=== PATIENT | female | born 1995 | race Hispanic/Latino ===

== ENCOUNTER 2019-03-29 10:08 | Inpatient (IN) | payer MEDICAID ==
[2019-03-29] MEDS ORDERED: BUTORPHANOL 2 MG/1 ML INJ IV PRN (14:36)
[2019-03-29] MEDS ORDERED: fentaNYL 100 MCG/2 ML INJ IV PRN (14:36)
[2019-03-29] MEDS ORDERED: MINERAL OIL 30 ML ORAL LIQD PO PRN (14:36)
[2019-03-29] MEDS ORDERED: TERBUTALINE 1 MG/1 ML INJ SUB-Q PRN (14:36)
[2019-03-29] MEDS ORDERED: TERBUTALINE 1 MG/1 ML INJ IVP PRN (14:36)
[2019-03-29] MEDS ORDERED: DINOPROSTONE 10 MG VAG SUPP VG ONE (14:36)
[2019-03-29] MEDS ORDERED: LIDOCAINE (2%) 20 MG/1 ML VIAL 20 ML MDV INFILTRATI ONE (14:36)
[2019-03-29] MEDS ORDERED: ePHEDrine SULFATE 50 MG/1 ML INJ IV PRN (14:36)
[2019-03-29] MEDS ORDERED: AMPICILLIN/NS 2 GM/100 ML 2 GM/100 ML BAG IV ONE (14:36)
[2019-03-29] MEDS ORDERED: OXYTOCIN DRIP 30 UNITS/500 ML BAG IV SCH (15:00)
[2019-03-29] MEDS ORDERED: OXYTOCIN 20 UNIT/1000ML DRIP 20 UNITS/1,000 ML BAG IV SCH (15:00)
[2019-03-29 16:04] LABS: Hematocrit 33.5 % (30.3-42.9); Hemoglobin 10.7 gm/dl (10.1-14.3); Mean Corpuscular HGB Conc 32 % (30-34); Mean Corpuscular Volume 75 fl (79-97); Platelet Count 188 K/mm3 (140-440); Red Blood Count 4.46 M/mm3 (3.65-5.03); Red Cell Distribution Width 15.3 % (13.2-15.2)
[2019-03-29 16:27] LABS: Alanine Aminotransferase 14 units/L (7-56)
[2019-03-29 17:09] LABS: Hemoglobin 10.1 gm/dl (10.1-14.3); Mean Corpuscular HGB Conc 33 % (30-34); Mean Corpuscular Volume 75 fl (79-97); Platelet Count 190 K/mm3 (140-440); Red Blood Count 4.15 M/mm3 (3.65-5.03); Red Cell Distribution Width 15.4 % (13.2-15.2)
[2019-03-29] MEDS ORDERED: MAGNESIUM SULFATE 4 GM/100 ML BAG IV ONE (17:19)
--- NOTE | 2019-03-29 17:36 | History and Physical Report ---
History of Present Illness Date of examination: 03/29/19 Date of admission: 03/29/19 Chief complaint: I'm here for induction History of present illness: Pt is a 23 year old who presents for induction of labor at 38 weeks secondary to newly elevated blood pressures in the office today. Up this point her course has been uncomplicated. She was being followed secondary to obesity. Past History Past Medical History: no pertinent history Past Surgical History: no surgical history Family/Genetic History: none Social history: single - Obstetrical History Expected Date of Delivery: 04/11/19 Actual Gestation: 38 Week(s) 1 Day(s) : 1 Para: 0 Number of Living Children: 0 Medications and Allergies Allergies Allergy/AdvReac Type Severity Reaction Status Date / Time No Known Allergies Allergy Verified 03/29/19 14:46 Home Medications Medication Instructions Recorded Confirmed Last Taken Type Multivitamin Tablet 1 tab PO DAILY 03/29/19 03/29/19 03/28/19 10:00 History Active Meds: Active Medications Butorphanol Tartrate (Stadol) 2 mg IV Q2H PRN PRN Reason: Pain , Severe (7-10) Ephedrine Sulfate (Ephedrine Sulfate) 10 mg IV Q2M PRN PRN Reason: Hypotension Fentanyl (Sublimaze) 100 mcg IV Q2H PRN PRN Reason: Labor Pain Oxytocin/Sodium Chloride (Pitocin/Ns 20 Unit/1000ml Drip) 20 units in 1,000 mls @ 125 mls/hr IV DIRECT DENISE Oxytocin/Sodium Chloride (Pitocin/Ns 30 Unit/500ml) 30 units in 500 mls @ 1 mls/hr IV TITR DENISE; Protocol Oxytocin/Sodium Chloride (Pitocin/Ns 30 Unit/500ml) 30 units in 500 mls @ 1 mls/hr IV TITR DENISE; Protocol Lactated Ringer's (Lactated Ringers) 1,000 mls @ 125 mls/hr IV DIRECT DENISE Magnesium Sulfate (Magnesium Sulfate 4gm/100ml) 4 gm in 100 mls @ 300 mls/hr IV ONCE ONE Stop: 03/29/19 17:38 Magnesium Sulfate (Magnesium Sulfate 40gm/1000ml) 40 gm in 1,000 mls @ 50 mls/hr IV DIRECT DENISE Labetalol HCl (Labetalol) 100 mg PO BID DENISE Mineral Oil (Mineral Oil) 30 ml PO QHS PRN PRN Reason: Constipation Terbutaline Sulfate (Brethine) 0.25 mg SUB-Q ONCE PRN PRN Reason: Hyperstimulation/Hypertonicity Terbutaline Sulfate (Brethine) 0.25 mg IVP ONCE PRN PRN Reason: Hyperstimulation/Hypertonicity Review of Systems All systems: negative Genitourinary: pelvic pain - Vital Signs Vital signs: Vital Signs Pulse BP Pulse Ox 88 129/85 98 03/29/19 11:49 03/29/19 11:49 03/29/19 11:49 Temp Pulse Resp BP Pulse Ox 83 144/80 95 03/29/19 17:28 03/29/19 17:17 03/29/19 17:28 - Physical Exam Breasts: Positive: normal Cardiovascular: Regular rate, Normal S1, Normal S2 Lungs: Positive: Clear to auscultation Abdomen: Positive: normal appearance, soft, normal bowel sounds. Negative: distention, tenderness Vulva: both: normal Vagina: Positive: normal moisture. Negative: discharge Cervix: Negative: lesion, discharge Uterus: Positive: normal size, normal contour Adnexa: both: normal Anus/Rectum: Positive: normal perianal skin, heme negative. Negative: rectal mass, hemorrhoids Extremities: Deep Tendon Reflex Grade: Normal +2 - Obstetrical FHR: auscultation normal Cervical Dilatation: 0.5 Cervical Effacement Percentage: 50 station: -3 Uterine Contraction Pattern: Absent Uterine Tone Measurement Phase: Resting Uterine Contraction Intensity: Moderate Results Result Diagrams: 03/29/19 16:31 03/29/19 12:50 Abnormal lab results 03/29/19 03/29/19 03/29/19 Range/Units 12:50 12:50 16:31 MCV 75 L 75 L (79-97) fl MCH 24 L 24 L (28-32) pg RDW 15.3 H 15.4 H (13.2-15.2) % Creatinine 0.5 L (0.7-1.2) mg/dL Lactate Dehydrogenase 433 H (91-180) units/L All other labs normal. Assessment and Plan IUP at 38.1 weeks for induction of labor secondary to elevated blood pressure. Will begin with cervidil and proceed to pitocin. Will begin mag for seizure prophylaxis. AROM when able. Anticipate .
[2019-03-29] MEDS: LACTATED RINGERS 1,000 ML IV SCH (18:58)
[2019-03-29] MEDS: MAGNESIUM SULFATE 40GM/1000ML 40 GM/1,000 ML BAG IV SCH (19:35)
[2019-03-29] MEDS ORDERED: ZOLPIDEM 5 MG TAB PO ONE (21:17)
[2019-03-29] MEDS ORDERED: hydrALAZINE 20 MG/1 ML INJ IV PRN (22:02)
[2019-03-29 22:42] LABS: Bacteria,Urine 1+ /HPF (Negative); Bilirubin,Urine NEG (Negative); Blood,Urine NEG (Negative); Color,Urine Yellow (Yellow); Mucus,Urine 3+ /HPF; Protein,Urine <15 mg/dL mg/dL (Negative); Urobilinogen,Urine < 2.0 mg/dL (<2.0)
[2019-03-30] MEDS: OXYTOCIN DRIP 30 UNITS/500 ML BAG IV SCH (05:48)
[2019-03-30] MEDS: LACTATED RINGERS 1,000 ML IV SCH ×2 (06:58→20:28)
[2019-03-30] MEDS ORDERED: DINOPROSTONE 10 MG VAG SUPP VG NR (07:27)
[2019-03-30] MEDS: ACETAMINOPHEN 325 MG TAB PO PRN ×2 (09:40→20:28)
--- NOTE | 2019-03-30 09:57 | Progress Note ---
Assessment and Plan A: IUP at 38w2d Preeclampsia with severe features on magnesium sulfate Undergoing induction of labor, s/p cervidil x 1 Obesity P: Continue current management Replace chapman with latex free chapman to ameliorate irritation Closely monitor maternal and status Subjective - Subjective Date of service: 03/30/19 Principal diagnosis: Preeclampsia with severe features on magnesium, undergoing IOL Interval history: Pt uncomfortable with chapman in place. Otherwise no obstetric complaints. Patient reports: new complaints (per HPI), movement normal, contractions (irregular ), no loss of fluid, no vaginal bleeding Objective - Vital Signs Vital Signs: Vital Signs - 12hr 03/29/19 03/29/19 03/29/19 22:02 22:07 22:12 Temperature Pulse Rate 88 95 H 84 Respiratory Rate Blood Pressure Blood Pressure [Left] O2 Sat by Pulse 97 99 97 Oximetry 03/29/19 03/29/19 03/29/19 22:17 22:22 22:26 Temperature Pulse Rate 88 86 85 Respiratory Rate Blood Pressure Blood Pressure [Left] O2 Sat by Pulse 97 95 94 Oximetry 03/29/19 03/29/19 03/29/19 22:27 22:32 22:33 Temperature Pulse Rate 84 84 83 Respiratory Rate Blood Pressure Blood Pressure [Left] O2 Sat by Pulse 95 95 94 Oximetry 03/29/19 03/29/19 03/29/19 22:37 22:42 22:43 Temperature Pulse Rate 87 83 86 Respiratory Rate Blood Pressure 132/76 Blood Pressure [Left] O2 Sat by Pulse 96 95 94 Oximetry 03/29/19 03/29/19 03/29/19 22:47 22:48 22:52 Temperature Pulse Rate 95 H 93 H 98 H Respiratory Rate Blood Pressure 138/78 Blood Pressure [Left] O2 Sat by Pulse 97 96 Oximetry 03/29/19 03/29/19 03/29/19 22:57 23:00 23:02 Temperature 97.9 F Pulse Rate 90 85 Respiratory Rate Blood Pressure Blood Pressure [Left] O2 Sat by Pulse 96 95 Oximetry 03/29/19 03/29/19 03/29/19 23:07 23:12 23:14 Temperature Pulse Rate 85 85 94 H Respiratory Rate Blood Pressure Blood Pressure [Left] O2 Sat by Pulse 96 96 90 Oximetry 03/29/19 03/29/19 03/29/19 23:20 23:25 23:30 Temperature Pulse Rate 89 84 98 H Respiratory Rate Blood Pressure Blood Pressure [Left] O2 Sat by Pulse 96 96 97 Oximetry 03/29/19 03/29/19 03/29/19 23:35 23:40 23:45 Temperature Pulse Rate 99 H 92 H 94 H Respiratory Rate Blood Pressure Blood Pressure [Left] O2 Sat by Pulse 95 96 96 Oximetry 03/29/19 03/29/19 03/29/19 23:48 23:50 23:55 Temperature Pulse Rate 92 H 95 H 86 Respiratory Rate Blood Pressure 142/83 Blood Pressure [Left] O2 Sat by Pulse 96 96 Oximetry 03/30/19 03/30/19 03/30/19 00:00 00:05 00:10 Temperature Pulse Rate 89 88 88 Respiratory Rate Blood Pressure Blood Pressure [Left] O2 Sat by Pulse 96 96 96 Oximetry 03/30/19 03/30/19 03/30/19 00:15 00:17 00:20 Temperature Pulse Rate 89 89 87 Respiratory Rate Blood Pressure Blood Pressure [Left] O2 Sat by Pulse 95 94 95 Oximetry 03/30/19 03/30/19 03/30/19 00:23 00:25 00:29 Temperature Pulse Rate 89 89 87 Respiratory Rate Blood Pressure Blood Pressure [Left] O2 Sat by Pulse 94 95 94 Oximetry 03/30/19 03/30/19 03/30/19 00:30 00:35 00:40 Temperature Pulse Rate 102 H 101 H 90 Respiratory Rate Blood Pressure Blood Pressure [Left] O2 Sat by Pulse 95 96 95 Oximetry 03/30/19 03/30/19 03/30/19 00:45 00:46 00:48 Temperature Pulse Rate 104 H 92 H 98 H Respiratory Rate Blood Pressure 112/83 Blood Pressure [Left] O2 Sat by Pulse 96 94 Oximetry 03/30/19 03/30/19 03/30/19 00:50 00:54 00:55 Temperature Pulse Rate 96 H 86 94 H Respiratory Rate Blood Pressure Blood Pressure [Left] O2 Sat by Pulse 95 94 96 Oximetry 03/30/19 03/30/19 03/30/19 01:00 01:05 01:06 Temperature Pulse Rate 89 89 89 Respiratory Rate Blood Pressure Blood Pressure [Left] O2 Sat by Pulse 95 95 94 Oximetry 03/30/19 03/30/19 03/30/19 01:10 01:12 01:15 Temperature Pulse Rate 86 93 H 97 H Respiratory Rate Blood Pressure Blood Pressure [Left] O2 Sat by Pulse 95 94 95 Oximetry 03/30/19 03/30/19 03/30/19 01:19 01:20 01:24 Temperature Pulse Rate 91 H 87 92 H Respiratory Rate Blood Pressure Blood Pressure [Left] O2 Sat by Pulse 94 96 94 Oximetry 03/30/19 03/30/19 03/30/19 01:25 01:30 01:35 Temperature Pulse Rate 89 91 H 88 Respiratory Rate Blood Pressure Blood Pressure [Left] O2 Sat by Pulse 95 94 95 Oximetry 03/30/19 03/30/19 03/30/19 01:40 01:45 01:48 Temperature Pulse Rate 103 H 91 H 90 Respiratory Rate Blood Pressure 94/62 Blood Pressure [Left] O2 Sat by Pulse 95 96 Oximetry 03/30/19 03/30/19 03/30/19 01:50 01:55 02:00 Temperature Pulse Rate 107 H 92 H 99 H Respiratory Rate Blood Pressure Blood Pressure [Left] O2 Sat by Pulse 97 96 96 Oximetry 03/30/19 03/30/19 03/30/19 02:05 02:10 02:15 Temperature Pulse Rate 93 H 97 H 92 H Respiratory Rate Blood Pressure Blood Pressure [Left] O2 Sat by Pulse 96 96 97 Oximetry 03/30/19 03/30/19 03/30/19 02:20 02:25 02:30 Temperature Pulse Rate 92 H 90 90 Respiratory Rate Blood Pressure Blood Pressure [Left] O2 Sat by Pulse 96 96 96 Oximetry 03/30/19 03/30/19 03/30/19 02:35 02:40 02:45 Temperature Pulse Rate 101 H 104 H 94 H Respiratory Rate Blood Pressure Blood Pressure [Left] O2 Sat by Pulse 97 96 96 Oximetry 03/30/19 03/30/19 03/30/19 02:48 02:50 02:55 Temperature Pulse Rate 98 H 102 H 95 H Respiratory Rate Blood Pressure 121/64 Blood Pressure [Left] O2 Sat by Pulse 96 96 Oximetry 03/30/19 03/30/19 03/30/19 03:00 03:05 03:10 Temperature Pulse Rate 106 H 97 H 95 H Respiratory Rate Blood Pressure Blood Pressure [Left] O2 Sat by Pulse 96 96 96 Oximetry 03/30/19 03/30/19 03/30/19 03:15 03:20 03:25 Temperature Pulse Rate 97 H 104 H 104 H Respiratory Rate Blood Pressure Blood Pressure [Left] O2 Sat by Pulse 96 97 94 Oximetry 03/30/19 03/30/19 03/30/19 03:30 03:35 03:40 Temperature Pulse Rate 94 H 93 H 111 H Respiratory Rate Blood Pressure Blood Pressure [Left] O2 Sat by Pulse 96 96 97 Oximetry 03/30/19 03/30/19 03/30/19 03:45 03:48 03:50 Temperature Pulse Rate 101 H 93 H 89 Respiratory Rate Blood Pressure 134/76 Blood Pressure [Left] O2 Sat by Pulse 96 96 Oximetry 03/30/19 03/30/19 03/30/19 03:55 04:00 04:05 Temperature 97.7 F Pulse Rate 91 H 101 H 103 H Respiratory Rate Blood Pressure Blood Pressure [Left] O2 Sat by Pulse 96 96 97 Oximetry 03/30/19 03/30/19 03/30/19 04:10 04:15 04:20 Temperature Pulse Rate 93 H 95 H 92 H Respiratory Rate Blood Pressure Blood Pressure [Left] O2 Sat by Pulse 97 93 97 Oximetry 03/30/19 03/30/19 03/30/19 04:25 04:30 04:35 Temperature Pulse Rate 108 H 111 H 95 H Respiratory Rate Blood Pressure Blood Pressure [Left] O2 Sat by Pulse 97 97 96 Oximetry 03/30/19 03/30/19 03/30/19 04:40 04:45 04:48 Temperature Pulse Rate 98 H 95 H 97 H Respiratory Rate Blood Pressure 117/70 Blood Pressure [Left] O2 Sat by Pulse 97 96 Oximetry 03/30/19 03/30/19 03/30/19 04:50 04:55 05:00 Temperature Pulse Rate 101 H 96 H 92 H Respiratory Rate Blood Pressure Blood Pressure [Left] O2 Sat by Pulse 96 96 95 Oximetry 03/30/19 03/30/19 03/30/19 05:03 05:05 05:08 Temperature Pulse Rate 102 H 92 H 91 H Respiratory Rate Blood Pressure Blood Pressure [Left] O2 Sat by Pulse 94 96 94 Oximetry 03/30/19 03/30/19 03/30/19 05:10 05:15 05:20 Temperature Pulse Rate 105 H 93 H 91 H Respiratory Rate Blood Pressure Blood Pressure [Left] O2 Sat by Pulse 97 97 96 Oximetry 03/30/19 03/30/19 03/30/19 05:25 05:26 05:30 Temperature Pulse Rate 88 92 H 90 Respiratory Rate Blood Pressure Blood Pressure [Left] O2 Sat by Pulse 95 94 95 Oximetry 03/30/19 03/30/19 03/30/19 05:32 05:35 05:38 Temperature Pulse Rate 90 88 90 Respiratory Rate Blood Pressure Blood Pressure [Left] O2 Sat by Pulse 94 95 94 Oximetry 03/30/19 03/30/19 03/30/19 05:40 05:44 05:45 Temperature Pulse Rate 91 H 89 91 H Respiratory Rate Blood Pressure Blood Pressure [Left] O2 Sat by Pulse 96 94 94 Oximetry 03/30/19 03/30/19 03/30/19 05:48 05:49 05:50 Temperature Pulse Rate 90 89 Respiratory 20 Rate Blood Pressure 116/71 Blood Pressure [Left] O2 Sat by Pulse 95 Oximetry 03/30/19 03/30/19 03/30/19 05:51 05:55 05:59 Temperature Pulse Rate 94 H 90 89 Respiratory Rate Blood Pressure Blood Pressure [Left] O2 Sat by Pulse 94 95 94 Oximetry 03/30/19 03/30/19 03/30/19 06:00 06:05 06:06 Temperature Pulse Rate 91 H 98 H 100 H Respiratory Rate Blood Pressure Blood Pressure [Left] O2 Sat by Pulse 95 95 94 Oximetry 03/30/19 03/30/19 03/30/19 06:10 06:15 06:20 Temperature Pulse Rate 95 H 92 H 95 H Respiratory Rate Blood Pressure Blood Pressure [Left] O2 Sat by Pulse 98 99 96 Oximetry 03/30/19 03/30/19 03/30/19 06:25 06:30 06:35 Temperature Pulse Rate 94 H 94 H 91 H Respiratory Rate Blood Pressure Blood Pressure [Left] O2 Sat by Pulse 96 96 96 Oximetry 03/30/19 03/30/19 03/30/19 06:40 06:45 06:47 Temperature 98.1 F Pulse Rate 98 H 111 H Respiratory Rate Blood Pressure Blood Pressure [Left] O2 Sat by Pulse 98 97 Oximetry 03/30/19 03/30/19 03/30/19 06:48 06:49 06:50 Temperature Pulse Rate 103 H 114 H 102 H Respiratory Rate Blood Pressure 117/73 Blood Pressure [Left] O2 Sat by Pulse 78 L 97 Oximetry 03/30/19 03/30/19 03/30/19 06:55 07:00 07:05 Temperature Pulse Rate 100 H 100 H 105 H Respiratory Rate Blood Pressure Blood Pressure [Left] O2 Sat by Pulse 95 96 97 Oximetry 03/30/19 03/30/19 03/30/19 07:10 07:15 07:20 Temperature Pulse Rate 100 H 102 H 97 H Respiratory Rate Blood Pressure Blood Pressure [Left] O2 Sat by Pulse 96 95 96 Oximetry 03/30/19 03/30/19 03/30/19 07:25 07:30 07:31 Temperature 97.9 F Pulse Rate 97 H 103 H 91 H Respiratory 16 Rate Blood Pressure Blood Pressure 117/73 [Left] O2 Sat by Pulse 96 97 96 Oximetry 03/30/19 03/30/19 03/30/19 07:35 07:40 07:45 Temperature Pulse Rate 94 H 89 92 H Respiratory Rate Blood Pressure Blood Pressure [Left] O2 Sat by Pulse 96 96 96 Oximetry 03/30/19 03/30/19 03/30/19 07:48 07:50 07:55 Temperature Pulse Rate 90 96 H 88 Respiratory Rate Blood Pressure 139/81 Blood Pressure [Left] O2 Sat by Pulse 97 96 Oximetry 03/30/19 03/30/19 03/30/19 08:00 08:05 08:10 Temperature Pulse Rate 92 H 88 93 H Respiratory Rate Blood Pressure Blood Pressure [Left] O2 Sat by Pulse 96 95 96 Oximetry 03/30/19 03/30/19 03/30/19 08:15 08:20 08:25 Temperature Pulse Rate 103 H 100 H 90 Respiratory Rate Blood Pressure Blood Pressure [Left] O2 Sat by Pulse 97 97 95 Oximetry 03/30/19 03/30/19 03/30/19 08:30 08:35 08:40 Temperature Pulse Rate 103 H 99 H 94 H Respiratory Rate Blood Pressure Blood Pressure [Left] O2 Sat by Pulse 98 97 97 Oximetry 03/30/19 03/30/19 03/30/19 08:45 08:48 08:50 Temperature Pulse Rate 91 H 92 H 92 H Respiratory Rate Blood Pressure 117/69 Blood Pressure [Left] O2 Sat by Pulse 96 97 Oximetry 03/30/19 03/30/19 03/30/19 08:55 09:00 09:05 Temperature Pulse Rate 93 H 94 H 98 H Respiratory Rate Blood Pressure Blood Pressure [Left] O2 Sat by Pulse 95 97 97 Oximetry 03/30/19 03/30/19 03/30/19 09:10 09:15 09:20 Temperature Pulse Rate 93 H 92 H 90 Respiratory Rate Blood Pressure Blood Pressure [Left] O2 Sat by Pulse 97 96 97 Oximetry 03/30/19 03/30/19 03/30/19 09:25 09:30 09:35 Temperature Pulse Rate 84 90 88 Respiratory Rate Blood Pressure Blood Pressure [Left] O2 Sat by Pulse 96 96 96 Oximetry 03/30/19 03/30/19 03/30/19 09:40 09:45 09:48 Temperature Pulse Rate 93 H 92 H 91 H Respiratory Rate Blood Pressure 114/63 Blood Pressure [Left] O2 Sat by Pulse 97 97 Oximetry 03/30/19 03/30/19 09:50 09:55 Temperature Pulse Rate 92 H 90 Respiratory Rate Blood Pressure Blood Pressure [Left] O2 Sat by Pulse 96 96 Oximetry - Exam Breasts: deferred Abdomen: Present: soft (obese, gravid) Uterus: Present: normal (gravid ) FHR: auscultation normal Cervical Effacement Percentage: 0 Uterine Contraction Pattern: Irregular Uterine Tone Measurement Phase: Resting Uterine Contraction Intensity: Mild Extremities: normal - Labs Labs: Abnormal Labs 03/29/19 03/29/19 03/29/19 12:50 12:50 16:31 MCV 75 L 75 L MCH 24 L 24 L RDW 15.3 H 15.4 H Creatinine 0.5 L Magnesium Lactate Dehydrogenase 433 H 03/30/19 00:48 MCV MCH RDW Creatinine Magnesium 4.30 H Lactate Dehydrogenase Laboratory Results - last 24 hr 03/29/19 03/29/19 03/29/19 12:50 12:50 12:50 WBC 10.7 RBC 4.46 Hgb 10.7 Hct 33.5 MCV 75 L MCH 24 L MCHC 32 RDW 15.3 H Plt Count 188 Creatinine 0.5 L Estimated GFR > 60 Uric Acid 6.0 Magnesium AST 32 ALT 14 Lactate Dehydrogenase 433 H Urine Color Urine Turbidity Urine pH Ur Specific [place] Urine Protein Urine Glucose (UA) Urine Ketones Urine Blood Urine Nitrite Urine Bilirubin Urine Urobilinogen Ur Leukocyte Esterase Urine WBC (Auto) Urine RBC (Auto) U Epithel Cells (Auto) Urine Bacteria (Auto) Urine Mucus Syphilis IgG Antibody Blood Type A POSITIVE Antibody Screen Negative 03/29/19 03/29/19 03/29/19 12:50 16:31 22:00 WBC 10.3 RBC 4.15 Hgb 10.1 Hct 31.0 MCV 75 L MCH 24 L MCHC 33 RDW 15.4 H Plt Count 190 Creatinine Estimated GFR Uric Acid Magnesium AST ALT Lactate Dehydrogenase Urine Color Yellow Urine Turbidity Slightly-cloudy Urine pH 7.0 Ur Specific [place] 1.011 Urine Protein <15 mg/dl Urine Glucose (UA) Neg Urine Ketones Neg Urine Blood Neg Urine Nitrite Neg Urine Bilirubin Neg Urine Urobilinogen < 2.0 Ur Leukocyte Esterase Neg Urine WBC (Auto) 1.0 Urine RBC (Auto) 1.0 U Epithel Cells (Auto) 11.0 Urine Bacteria (Auto) 1+ Urine Mucus 3+ Syphilis IgG Antibody Non-reactive Blood Type Antibody Screen 03/30/19 00:48 WBC RBC Hgb Hct MCV MCH MCHC RDW Plt Count Creatinine Estimated GFR Uric Acid Magnesium 4.30 H AST ALT Lactate Dehydrogenase Urine Color Urine Turbidity Urine pH Ur Specific [place] Urine Protein Urine Glucose (UA) Urine Ketones Urine Blood Urine Nitrite Urine Bilirubin Urine Urobilinogen Ur Leukocyte Esterase Urine WBC (Auto) Urine RBC (Auto) U Epithel Cells (Auto) Urine Bacteria (Auto) Urine Mucus Syphilis IgG Antibody Blood Type Antibody Screen
[2019-03-30] MEDS ORDERED: diphenhydrAMINE 50 MG CAP PO NR (12:00)
[2019-03-30] MEDS ORDERED: FLU VACC QUAD 2019-20 (3 YR UP)/PF 60 MCG/0.5 ML SYRINGE IM ONE (12:00)
[2019-03-30] MEDS: MAGNESIUM SULFATE 40GM/1000ML 40 GM/1,000 ML BAG IV SCH (15:59)
[2019-03-31] MEDS: OXYTOCIN DRIP 30 UNITS/500 ML BAG IV SCH (00:16)
[2019-03-31] MEDS ORDERED: DEXMEDETOMIDINE 200 MCG/2 ML VIAL IV ONE (06:13)
[2019-03-31] MEDS ORDERED: NALOXONE 2 MG/2 ML INJ IV PRN (06:35)
[2019-03-31] MEDS: ePHEDrine SULFATE 50 MG/1 ML INJ IV PRN ×3 (06:54→07:04)
[2019-03-31] MEDS: fentaNYL-BUPIV 2 MCG/ML-0.125% 200 MCG/100 ML BAG EPIDURAL SCH ×2 (08:46→16:22)
[2019-03-31] MEDS ORDERED: OXYTOCIN 10 UNIT/1 ML INJ IM ONE (19:30)
[2019-03-31] MEDS ORDERED: OXYTOCIN 10 UNIT/1 ML INJ ONE (19:37)
--- NOTE | 2019-03-31 21:10 | Procedure Note ---
OB Delivery Note - Delivery Date of Delivery: 03/31/19 Surgeon: KATIE PAYAN Estimated blood loss: 200cc - Vaginal Delivery presentation: vertex Delivery position: OA Intrapartum events: gestational hypertension Delivery induction: cervidil Delivery augmentation: pitocin Delivery monitor: external FHT, external uterine Route of delivery: Delivery placenta: spontaneous Delivery cord: 3 umbilical vessels Episiotomy: none Delivery laceration: none Anesthesia: epidural Delivery comments: Viable female delivered over intact perineum at 2036with no nuchal cord. Mouth and nose suctioned on perineum. Infant placed on maternal abdomen. Cord clamped and cut when done pulsating. Placenta delivered spontaneously and intact with 3vc. No lacerations noted. Exxcellent hemostasis. Patient tolerated procedure well. - Infant A at 1 minute: 9 at 5 minutes: 9 Gender: Female (6 pounds 3 ounces)
--- NOTE | 2019-03-31 22:23 | Anesthesia Consultation ---
Anesthesia Consult and Med Hx Date of service: 03/31/19 - Airway Anesthetic Teeth Evaluation: Good ROM Head & Neck: Adequate Mental/Hyoid Distance: Adequate Mallampati Class: Class II Intubation Access Assessment: Good - Pulmonary Exam CTA: Yes - Cardiac Exam Cardiac Exam: RRR - Pre-Operative Health Status ASA Pre-Surgery Classification: ASA2, Emergency Proposed Anesthetic Plan: Epidural, Spinal - Pulmonary Hx Asthma: No COPD: No Hx Pneumonia: No - Cardiovascular System Hx Hypertension: No - Central Nervous System Hx Seizures: No Hx Psychiatric Problems: No - Endocrine Hx Renal Disease: No Hx End Stage Renal Disease: No Hx Hypothyroidism: No Hx Hyperthyroidism: No - Hematic Hx Anemia: No Hx Sickle Cell Disease: No - Other Systems Hx Alcohol Use: No
--- NOTE | 2019-03-31 22:24 | Post Anesthesia Evaluation ---
- Post Anesthesia Evaluation Patient Participated: Yes Airway Patent: Yes Stable Respiratory Function: Yes Nausea/Vomiting: No Temp > 96.8F: Yes Pain Manageable: Yes Adequeate Hydration: Yes Anesthesia Complications: No Block Receding Appropriately: Yes Patient on Ventilator: No
[2019-03-31] MEDS ORDERED: OXYTOCIN 20 UNIT/1000ML DRIP 20 UNITS/1,000 ML BAG IV SCH (23:02)
[2019-03-31] MEDS ORDERED: PROMETHAZINE 25 MG TAB PO PRN (23:02)
[2019-03-31] MEDS ORDERED: ACETAMINOPHEN 325 MG TAB PO PRN (23:02)
[2019-03-31] MEDS ORDERED: LANOLIN/ZINC/DIMETHICONE (LANSINOH) 7 GM TP PRN (23:02)
[2019-03-31] MEDS ORDERED: PROMETHAZINE 25 MG RECT SUPP PR PRN (23:02)
[2019-03-31] MEDS ORDERED: ONDANSETRON 4 MG/2 ML INJ IV PRN (23:02)
[2019-03-31] MEDS ORDERED: WITCH HAZEL/ GLYCERIN PAD TP PRN (23:02)
[2019-03-31] MEDS ORDERED: HYDROcodone/ACETAMINOPHEN 5-325 MG TAB PO PRN (23:02)
[2019-03-31] MEDS ORDERED: diphenhydrAMINE 25 MG CAP PO PRN (23:02)
[2019-03-31] MEDS ORDERED: MAGNESIUM HYDROXIDE (MOM) ORAL LIQD UDC PO PRN (23:02)
[2019-04-01] MEDS: DOCUSATE SODIUM 100 MG CAP PO SCH ×2 (00:02→08:50)
[2019-04-01] MEDS: IBUPROFEN 600 MG TAB PO SCH ×3 (05:21→14:15)
[2019-04-01] MEDS: PRENATAL VIT27-FE FUMARATE-FOLIC ACID VIT TAB PO SCH (08:50)
[2019-04-01 10:28] LABS: Hematocrit 28.6 % (30.3-42.9); Hemoglobin 9.3 gm/dl (10.1-14.3)
[2019-04-01] MEDS: SENNOSIDES/DOCUSATE SODIUM 8.6/50 MG TAB PO SCH ×2 (14:15)
--- NOTE | 2019-04-01 21:06 | Progress Note ---
Assessment and Plan PPD 1 s/p . Doing well. Pt reports muscle soreness, but nothing else. Will plan for discharge on tomorrow Subjective - Subjective Date of service: 04/01/19 Principal diagnosis: Preeclampsia with severe features on magnesium, undergoing IOL Interval history: Pt is a 23 year old who presents for induction of labor at 38 weeks secondary to newly elevated blood pressures in the office today. Up this point her course has been uncomplicated. She was being followed secondary to obesity. Patient reports: appetite normal, voiding normally, pain well controlled, ambulating normally [place]: doing well Objective - Vital Signs Latest vital signs: Vital Signs Temp Pulse Resp BP BP Pulse Ox 04/01/19 16:36 99.2 F 97 H 18 119/60 96 04/01/19 12:21 97.9 F 78 18 137/82 97 04/01/19 08:16 98.4 F 68 18 139/86 96 04/01/19 06:21 18 04/01/19 05:21 18 04/01/19 04:00 98.6 F 63 16 121/78 04/01/19 01:00 18 04/01/19 00:00 18 03/31/19 22:48 98.9 F 92 H 18 136/84 03/31/19 22:04 96 H 120/75 03/31/19 21:58 94 H 95 03/31/19 21:57 100 H 94 03/31/19 21:53 97 H 96 03/31/19 21:51 102 H 93 03/31/19 21:48 97 H 97 03/31/19 21:43 95 H 97 03/31/19 21:38 99 H 97 03/31/19 21:35 93 H 133/77 03/31/19 21:33 99 H 94 03/31/19 21:32 92 H 94 03/31/19 21:28 97 H 95 03/31/19 21:14 99 H 95 03/31/19 21:13 98 H 94 03/31/19 21:09 97 H 95 03/31/19 21:04 98 H 119/57 Intake and Output 04/01/19 04/01/19 04/01/19 06:59 14:59 22:59 Intake Total 780 1080 720 Output Total 600 Balance 180 1080 720 Intake: Oral 360 Intake, Free Water 780 720 720 Output: Urine 600 Void 600 Other: Total, Intake Amount 360 Total, Output Amount 250 # Voids Void 1 3 3 Estimated Blood Loss 200 - Exam Breasts: Present: deferred Lungs: Present: Clear to auscultation, Normal air movement Abdomen: Present: normal appearance, soft, normal bowel sounds Uterus: Present: normal, firm Extremities: Present: normal - Labs Labs: Abnormal lab results 04/01/19 Range/Units 10:06 Hgb 9.3 L (10.1-14.3) gm/dl Hct 28.6 L (30.3-42.9) %
--- NOTE | 2019-04-01 21:09 | Discharge Summary ---
Providers - Providers Date of Admission: 03/29/19 14:37 Date of discharge: 04/02/19 Attending physician: KATIE PAYAN Primary care physician: KATIE PAYAN Hospitalization Reason for admission: induction of labor Delivery: Episiotomy: none Laceration: none complications: none Discharge diagnosis: IUP at term delivered [place] baby: female Hospital course: unremarkable Condition at discharge: Good Disposition: DC-01 TO HOME OR SELFCARE Plan - Discharge Medications Prescriptions: Docusate Sodium [Colace] 100 mg PO BID PRN #60 capsule PRN Reason: Constipation Ferrous Sulfate [Feosol 325 MG tab] 325 mg PO BID #60 tablet Ibuprofen [Motrin] 800 mg PO Q8HR PRN #40 tablet PRN Reason: Pain, Mild (1-3) - Provider Discharge Summary Activity: routine, no sex for 6 weeks, no heavy lifting 4 weeks, no strenuous exercise Diet: routine Instructions: routine Additional instructions: [] Smoking cessation referral if applicable(refer to patient education folder for contact #) [] Refer to [facility] Booklet Call your doctor immediately for: * Fever > 100.5 * Heavy vaginal bleeding ( >1 pad per hour) * Severe persistent headache * Shortness of breath * Reddened, hot, painful area to leg or breast * Drainage or odor from incision. * Keep incision clean and dry at all times and follow doctor's instructions regarding bathing/showering - Follow up plan Follow up: KATIE PAYAN MD [Primary Care Provider] - 6 Weeks
[2019-04-02] MEDS: DOCUSATE SODIUM 100 MG CAP PO SCH ×2 (00:01→11:01)
[2019-04-02] MEDS: SENNOSIDES/DOCUSATE SODIUM 8.6/50 MG TAB PO SCH (00:01)
[2019-04-02] MEDS: IBUPROFEN 600 MG TAB PO SCH ×2 (00:01→04:39)
[2019-04-02] MEDS ORDERED: TETANUS,DIPH,PERTUSS(ACELL) VACCINE 0.5 ML SYRINGE IM ONE (06:00)
[2019-04-02 10:23] VITALS: BP 131/81
[2019-04-02] MEDS: PRENATAL VIT27-FE FUMARATE-FOLIC ACID VIT TAB PO SCH (11:01)
[2019-04-02] MEDS ORDERED: FLU VACC QUAD 2019-20 (3 YR UP)/PF 60 MCG/0.5 ML SYRINGE IM ONE (12:00)
== END 2019-04-02 11:27 | disposition home or self-care (01) | DRG 775 ==
LOC: TRG 10:08 → LD 10:09 → TRG 14:36 → LD 14:37 → OB 03-31 22:40
PROVIDERS: ADMIT Obstetrics & Gynecology; ATTEND Obstetrics & Gynecology
PROC: 10E0XZZ Delivery of Products of Conception, External Approach (ICD-10-PCS; principal; 2019-03-31)
PROC: 3E0P7VZ Introduction of Hormone into Female Reproductive, Via Natural or Artificial Opening (ICD-10-PCS; 2019-03-31)
PROC: 3E0R3BZ Introduction of Anesthetic Agent into Spinal Canal, Percutaneous Approach (ICD-10-PCS; 2019-03-31)
PROC: 00HU33Z Insertion of Infusion Device into Spinal Canal, Percutaneous Approach (ICD-10-PCS; 2019-03-31)
PROC: 3E0234Z Introduction of Serum, Toxoid and Vaccine into Muscle, Percutaneous Approach (ICD-10-PCS; 2019-04-02)
DX: O13.4 Gestational [pregnancy-induced] hypertension without significant proteinuria, complicating childbirth (principal); O99.214 Obesity complicating childbirth; O14.14 Severe pre-eclampsia complicating childbirth; Z37.0 Single live birth; Z23 Encounter for immunization; Z3A.38 38 weeks gestation of pregnancy; Z79.899 Other long term (current) drug therapy
CPT/HCPCS: 36415; 59200; 81001; 82565; 83615; 83735; 84450; 84460; 84550; 85014; 85018; 85027; 86592; 86762; 86850; 86900; 86901; 90471; 90686; 90715; 96372; G0378; A6250; G0008; J0595; J2590; J3010; J3475; J3490; J7120